=== PATIENT | male | born 2000 | race Caucasian/White ===

== ENCOUNTER 2021-02-14 22:19 | Emergency (ER) | payer SELFPAY ==
[2021-02-14 22:42] VITALS: BP 101/68; PULSE 92; RESP 17; TEMP 36.8; O2SAT 100
[2021-02-14 23:18] LABS: Add Urine Microscopic? YES; Appearance Urine Clear (Clear); Bacteria Urine Trace /hpf; Bilirubin Urine Negative (Negative); Blood Urine 3+ (Negative); Color Urine Red (Yellow); Glucose Urine UA Negative (Negative); Ketones Urine Negative (Negative); Leukocyte Esterase Ur Negative LEU/UL (Negative); Mucus Urine Rare /lpf; Nitrate Urine Negative (Negative); Protein Urine 2+ mg/dL (Negative); Urobilinogen Urine Negative mg/dL (<2.0)
[2021-02-14 23:25] LABS: Specific Grav Ur 1.002 (1.001-1.035)
--- NOTE | 2021-02-15 00:29 | ED.MALEGU ---
HPI - Male Genitourinary General Chief complaint: Urogenital-Male Stated complaint: peeing blood Time Seen by Provider: 02/15/21 00:28 Source: patient Mode of arrival: ambulatory Limitations: no limitations History of Present Illness HPI Narrative: The patient is a 20 yo male with a history of atrophic kidney since presenting for evaluation of hematuria. Patient reporting hematuria and dysuria this evening; pt also reporting urinary frequency today. Pt denies back pain or flank pain. Denies fever or chills. Denies abdominal pain or chest pain. Patient has no known history of nephrolithiasis. Pt states he had this happen in the past and was diagnosed with a urinary tract infection in [place] (where he is from). No nausea or vomiting. No testicular pain or swelling. Denies history of sexual transmitted infection. Denies discharge from the penis or penile pain. Related Data Allergies Allergy/AdvReac Type Severity Reaction Status Date / Time No Known Allergies Allergy Verified 02/15/21 00:48 Review of Systems Review of Systems: CONSTITUTIONAL: Denies fever, chills, or sweats. ENT: Denies rhinorrhea, congestion CARDIOVASCULAR: Denies chest pain RESPIRATORY: Denies cough GASTROINTESTINAL: Denies abdominal pain, nausea, vomiting, or diarrhea. GENITOURINARY: Reports dysuria and hematuria SKIN: Denies rash or itching. MUSCULOSKELETAL: Denies back pain, joint pain, or myalgia. NEUROLOGIC: Denies headache, numbness, or weakness. [facility] Social History Social History (Updated 02/15/21 @ 00:43 by Bryanna Parada MD) Smoking status: Current every day smoker Tobacco type: cigarettes Alcohol intake: current Substance use: current Substance use type: marijuana Living arrangements: dorm student housing Additional living arrangements comments: exchange student Occupation/Education: student Gender identity (if verbalized by the patient): Male Exam Narrative: GENERAL: Awake, alert, conversant HEAD: Normocephalic, atraumatic. EYES: PERRLA and EOMI. ENT: Nares clear, no rhinorrhea or epistaxis. Mucous membranes moist. NECK: Supple. CHEST: No respiratory distress, breathing even and non labored HEART: Regular rate, sinus rhythm ABDOMEN:Non distended, non tender. No flank pain. EXTREMITIES: Normal range of motion. No edema. SKIN: Warm, dry, no rash. NEURO:No focal deficits. Alert and oriented x3 Course Vital Signs Vital signs: Vital Signs Temperature 36.8 C 02/14/21 22:42 Pulse Rate 92 02/14/21 22:42 Respiratory Rate 17 02/14/21 22:42 Blood Pressure 101/68 02/14/21 22:42 Pulse Oximetry 100 02/14/21 22:42 Temperature 36.8 C 02/14/21 22:42 Pulse Rate 76 02/15/21 00:54 Respiratory Rate 15 02/15/21 00:54 Blood Pressure 127/74 02/15/21 00:54 Pulse Oximetry 95 02/15/21 00:54 MDM - Male Genitourinary MDM Narrative Medical decision making narrative: Patient is presenting for evaluation of dysuria, hematuria and frequency. Patient reports history of urinary tract infection and states this feels similar. She denies any testicular pain or penile pain or swelling. No flank pain or abdominal pain. No fever, chills, nausea or vomiting. Vital signs are stable and reassuring. Clinically this does not seem consistent with pyelonephritis. Did obtain a urinalysis which shows hematuria and a few white blood cells present given the patient's symptoms it does seem consistent with a urinary tract infection although I did explain to the patient he does not have a overwhelmingly convincing urinalysis. At this point, we will treat and await culture. Patient without any testicular pain, penile pain or discharge, thus testicular ultrasound not indicated. Patient without flank pain. Not consistent with nephrolithiasis. Regardless, this seems to be most consistent with urinary tract infection given dysuria, frequency, hematuria. Will place patient on antibiotic, Pyridium. Advised PCP follow-up within the n
[2021-02-15 00:54] VITALS: BP 127/74; PULSE 76; RESP 15; O2SAT 95
[2021-02-15] MEDS: PHENAZOPYRIDINE HCL 100 MG TABLET PO (01:17)
[2021-02-15] MEDS: CEPHALEXIN 500 MG CAPSULE PO (01:17)
== END 2021-02-15 01:15 | disposition home or self-care (01) ==
PROVIDERS: Emergency Provider Emergency Medicine
DX: R31.9 Hematuria, unspecified (principal); R30.0 Dysuria; R82.998 Other abnormal findings in urine; F17.200 Nicotine dependence, unspecified, uncomplicated
CPT/HCPCS: 81001; 99283; A9270